=== PATIENT | female | born 1980 | race Caucasian/White ===

== ENCOUNTER 2022-12-23 05:30 | Day surgery (SDC) | payer OTHER ==
[2022-12-22 12:23] VITALS: BMI 23.6
[2022-12-23] MEDS ORDERED: BUPIVACAINE HCL/PF 0.25% (2.5MG/ML) 10 ML VIAL ONE (08:12)
[2022-12-23] MEDS ORDERED: cefOXitin SODIUM 2 GM VIAL (RESTRICTED TO ID) IVPB ONE ×3 (08:13→10:15)
[2022-12-23] MEDS ORDERED: HEPARIN NA (PORCINE) 5,000 UNITS/ML 1ML VIAL ONE (08:13)
[2022-12-23] MEDS ORDERED: BUPIVACAINE HCL/PF 0.25% (2.5MG/ML) 10 ML VIAL IJ ONE ×2 (08:14→10:36)
[2022-12-23] MEDS ORDERED: HEPARIN NA (PORCINE) 5,000 UNITS/ML 1ML VIAL SQ ONE ×2 (08:14→10:12)
[2022-12-23] MEDS ORDERED: oxyCODONE HCL 5 MG TABLET PO PRN (11:27)
[2022-12-23] MEDS ORDERED: LACTATED RINGERS SOLUTION 1,000 ML IV SCH (11:30)
[2022-12-23 12:22] VITALS: TEMP 98.6
[2022-12-23 12:59] VITALS: BP 123/74; PULSE 57
[2022-12-23 13:52] VITALS: RESP 20
[2022-12-23] MEDS ORDERED: oxyCODONE HCL 5 MG TABLET ONE (14:34)
== END 2022-12-23 15:00 | disposition home or self-care (01) ==
LOC: JASU-SURG 05:30
PROVIDERS: ATTEND Surgery
PROC: 06BY0ZC Excision of Hemorrhoidal Plexus, Open Approach (ICD-10-PCS; principal; 2022-12-23 09:30)
DX: K64.3 Fourth degree hemorrhoids (principal)
CPT/HCPCS: 81025; 88304-TC; 94760; J1644